=== PATIENT | female | born 1995 | race Caucasian/White ===

== ENCOUNTER → 2024-09-09 15:54 | Outpatient (REF) | payer BC, SELFPAY | LOC: PNTC 15:54 | PROVIDERS: ATTENDING PHYSICIAN Obstetrics & Gynecology | DX: O02.1 Missed abortion (principal) | CPT/HCPCS: 36415; 86850; 86900; 86901; 96372; J2790 ==

== ENCOUNTER 2024-09-23 06:32 | Day surgery (SDC) | payer BC, SELFPAY ==
[2024-09-23] VITALS (7 sets, daily range): BP systolic 93–119; BP diastolic 51–73; BMI 27.8
[2024-09-23] MEDS: TRANSDERM-SCOP 1 PATCH TRANSDERM (12:33)
[2024-09-23] MEDS: TYLENOL 1000 MG PO (12:33)
[2024-09-23] MEDS: VIBRAMYCIN 270 MG IV (12:47)
[2024-09-23 13:09] LABS: Hematocrit 34.3 % (37.0-47.0)
[2024-09-23] MEDS: DILAUDID 0.25 MG IV (14:14)
== END 2024-09-23 15:24 | disposition home or self-care (01) ==
LOC: SDS 06:32
PROVIDERS: ATTENDING PHYSICIAN Obstetrics & Gynecology
DX: O02.1 Missed abortion (principal); Z3A.09 9 weeks gestation of pregnancy
CPT/HCPCS: 59820; 88305; 85014; 85018; 86850; 86870; 86900; 86901

== ENCOUNTER → 2025-03-07 13:21 | Outpatient (REF) | payer BC, SELFPAY | LOC: RAD 13:21 | PROVIDERS: ATTENDING PHYSICIAN Nurse Practitioner Family; FAMILY PHYSICIAN Nurse Practitioner | DX: O26.859 Spotting complicating pregnancy, unspecified trimester (principal) | CPT/HCPCS: 76801; 76817 ==

== ENCOUNTER → 2025-04-26 10:50 | Outpatient (REF) | payer BC, SELFPAY | LOC: PNTC 10:50 | PROVIDERS: ATTENDING PHYSICIAN Obstetrics & Gynecology | DX: Z36.0 Encounter for antenatal screening for chromosomal anomalies (principal); Z36.82 Encounter for antenatal screening for nuchal translucency | CPT/HCPCS: 76801; 76813 ==

== ENCOUNTER → 2025-08-08 06:58 | Outpatient (REF) | payer BC, SELFPAY | LOC: PNTC 06:58 | PROVIDERS: ATTENDING PHYSICIAN Obstetrics & Gynecology | DX: Z34.93 Encounter for supervision of normal pregnancy, unspecified, third trimester (principal) | CPT/HCPCS: 36415; 86850; 86900; 86901; 96372; J2790 ==